=== PATIENT | female | born 1990 | race Caucasian/White ===

== ENCOUNTER 2024-08-26 15:38 | Observation (INO) | payer BC, SELFPAY ==
[2024-08-26] VITALS (9 sets, daily range): BP systolic 127–144; BP diastolic 63–80; PULSE 79–93; RESP 11–18; TEMP 36.2–36.6; O2SAT 95–100; BMI 31.9
--- NOTE | 2024-08-26 | PATH_ITS ---
[facility] Accession Number: [id number] No. of containers..02 Tissue . 01 Material submitted: . PART A: fallopian tube - LEFT FALLOPIAN TUBE AND OVARY PART B: endometrium - ENDOMETRIAL CURETTINGS . 01 Diagnosis: A. LEFT FALLOPIAN TUBE AND OVARY, LEFT SALPINGO-OOPHORECTOMY (WEIGHT 12 GRAMS) AND B. ENDOMETRIAL CURETTINGS: . Negative for ectopic gestation in part A or part B. Histologic changes in part A (possible luteoma of ) and part B (decidua and Chambers-Tania glandular reaction) suggest a possible extrauterine . Please correlate with clinical and imaging findings. [facility] 08/30/2024 1651 Local . 01 Comment: This case was also reviewed by Dr. Kiesha Mabry (Julie), who agrees with the interpretation. . Dr. Danielle Ann made multiple unsuccessful attempts to reach Dr. Misa Gold's care team on 08-30-24 between 4:30 p.m. and 4:45 p.m. Office phone number left with voicemail message. . 01 Electronically signed: . Danielle Ann MD, Pathologist NPI- [id number] . 01 Gross description: . A. Received in formalin with two identifiers and left ovary and left fallopian tube, is an intact fallopian tube (4.9 x 0.8 cm) attached to a 12 gram, 5.2 x 2.5 x 2.0 cm disrupted ovary. A portion of the ovary is ruptured revealing yellow-benitez, slightly spongy tissue. The external surface is inked blue and sectioning reveals two yellow disrupted cystic structures containing a small amount of coagulated hemorrhagic material. A second thin smooth-walled cyst containing benitez serous fluid measures 0.6 cm in greatest dimension with no excrescences identified. The remaining parenchyma is physiologic and unremarkable. . The tube has violaceous, smooth serosa with cystic structures up to 0.2 cm in greatest dimension filled with cloudy serous fluid. The lumen is stellate and unremarkable with no dilation or hemorrhagic material identified. Traffic Or System Dispatcher sections are submitted as follows: A1: Fallopian tube. A2-A5: Ovary. B. Received in formalin with two identifiers and endometrial curettings, are multiple benitez to red-brown soft tissue fragments admixed with hemorrhagic material received on multiple fragments of friable Telfa paper aggregating to 3.9 x 2.7 x 1.2 cm. Filtered and submitted entirely in B2-B2. ([id number]) /MRV 08/29/2024 1250 Local . 01 Pathologist provided ICD-10: N83.12 . 01 CPT . 055879, [id number] Specimen Comment: A courtesy copy of this report has been sent to [facility] Pathology Performed at: [address] [address], [place], [place] [id number] MD Prashant Hernández MD Phone: [phone]
--- NOTE | 2024-08-26 16:00 | ED_ITS ---
HPI - General Chief complaint: OB/Uterine Contractions Stated complaint: Ectopic and bleeding History of Present Illness HPI Narrative: 34-year-old female who comes from [facility] who is a with a concern of a left-sided ectopic . Sign-out was given to me by Dr. posey. Her previous was premature. Her most recent ultrasound by maternal medicine specialist showed an empty uterus so there was concern for potential ectopic . Yesterday she had some cramping in the lower abdominal area more on the left side and noticed some mucus darker secretion. Today she has been having some spotting off and on and more increase in lower left-sided abdominal pain. Related Data Previous Rx's ?Medication ?Instructions ?Recorded ibuprofen 800 mg tablet 800 mg PO Q8H PRN pain #14 t abs 08/26/24 oxycodone 5 mg tablet 5 mg PO Q8H PRN pain #7 tabs 08/26/24 Allergies Allergy/AdvReac Type Severity Reaction Status Date / Time nifedipine Allergy Unknown Verified 08/26/24 17:27 Review of Systems Review of Systems ROS Unobtainable: All systems reviewed & are unremarkable except as noted in HPI and below Exam Narrative Exam Narrative: General: Patient appears to be in no acute distress, acting appropriately Head: normocephalic, atraumatic, HEENT: Pupils equal round reactive, eyes tracking well, neck supple, no JVD Heart: regular rate and rhythm, no murmurs, rubs, or gallops heard Lungs: clear to auscultation, no adventitious sounds Abdomen: soft , mildly tender to palpation in left lower adomen , nondistended, positive bowel sounds Neurological: no focal neurological signs, moving all extremities well, alert and oriented x3, Psych: good judgment ,good insight, mood is normal. Initial Vital Signs Initial Vital Signs: Vital Signs Pulse Rate 85 08/26/24 15:47 Blood Pressure 129/75 08/26/24 15:47 Pulse Oximetry 95 08/26/24 15:47 Course Course Course Narrative: OBGYN physician Dr. Santizo is aware of patient and will take the patient into the OR to assist with the ectopic . Orders Ordered: ED Orders 08/26/24 16:12 Type and Screen Stat Albuterol (Albuterol 2.5 Mg/3 Ml Neb (Adult)) 2.5 mg INH NOW PRN PRN Reason: Coughing, Wheezing, Dyspnea Hydromorphone HCl (Hydromorphone 1 Mg Inj) 0 mg IV Q5MIN PRN PRN Reason: Pain, Moderate (4-6) Hydroxyzine HCl (Hydroxyzine Hcl 25 Mg Tablet) 25 mg PO NOW PRN PRN Reason: Pain, Mild (1-3) Lactated Ringer's (Lactated Ringers) 1,000 mls @ 21 mls/hr IV CONT VERO Last Admin: 08/26/24 18:49 Dose: 21 mls/hr Documented By: Infusion: 08/26/24 18:49 Dose: Infused Documented By: Admin: 08/26/24 17:26 Dose: 21 mls/hr Documented By: Admin: 08/26/24 17:07 Dose: Not Given Documented By: CHEPE Metoclopramide HCl (Metoclopramide 10 Mg/2 Ml Inj) 10 mg IV NOW PRN PRN Reason: Nausea And Vomiting Ondansetron HCl (Ondansetron 4 Mg/2 Ml Inj) 4 mg IV NOW PRN PRN Reason: Nausea And Vomiting Oxycodone HCl (Oxycodone Ir 5 Mg Tablet) 5 mg PO PACUNOW PRN PRN Reason: Mild or moderate pain Discontinued Medications Bupivacaine HCl/Epinephrine Bitart (Bupivacaine 0.5% W/ Epi (Pf) 30 Ml Vial) 30 ml INJ NOW ONE Stop: 08/26/24 18:25 Last Admin: 08/26/24 18:24 Dose: 30 ml Documented By: GENOVEVA Acetaminophen (Ofirmev) 1,000 mg in 100 mls @ 400 mls/hr IV NOW ONE Stop: 08/26/24 17:21 Last Admin: 08/26/24 17:26 Dose: 400 mls/hr Documented By: EVITA Ondansetron HCl (Ondansetron 4 Mg Odt Prepack) 1 bottle MISC DIRECTED ONE Stop: 08/26/24 17:29 Oxycodone/Acetaminophen (Oxycodone/Apap 5/325 Prepack) 1 bottle MISC DIRECTED ONE Stop: 08/26/24 17:29 Consultations Consultation #1: Dr santizo consulted and aware of patient and admitted to surgery. Thank you Dr. Santizo. Vital Signs Vital signs: Vital Signs - 8 hr 08/26/24 15:47 08/26/24 16:00 08/26/24 16:00 Temperature Pulse Rate 85 85 Respiratory Rate Blood Pressure 129/75 127/77 Pulse Oximetry 95 97 Oxygen Delivery Method 08/26/24 16:02 08/26/24 16:30 Temperature 97.8 F Pulse Rate 82 84 Respiratory Rate 18 Blood Pressure 127/77 130/80 Pulse Oximetry 97 97 Oxygen Delivery Method Room Air MDM - OB/Uterine Contractions Differential Diagnosis Differential diagnosis: Likely pre-eclampsia and other (ectopic , uti ) Lab Data Labs: Lab Results 08/26/24 Range/Units 16:12 Blood Type O Negative Antibody Screen Negative Point of Care Testing Test Results Positive MDM Narrative Medical decision making narrative: The patient admitted to obgyn surgery and will follow up from there. Discharge Plan Departure Patient Disposition: Admitted to Surgery Clinical Impression: Ectopic Qualifiers: Location of ectopic : other location Intrauterine status: unspecified Qualified Code(s): O00.80 - Other ectopic without intrauterine Admit Date/Time: 08/26/24 16:41 Admit Provider: Misa Santizo
--- NOTE | 2024-08-26 16:29 | PM.GYNHP.1 ---
History of Present Illness History of Present Illness Reason for admission: vaginal bleeding and ectopic Narrative: Brianda Ocampo is a 34 year old female at 8wga by stated LMP who presents as transfer for [facility] for further evaluation and management of ectopic without hemodynamic instability. Patient states she had first new OB appointment with [facility] [place] 08/24. bHCG at that time was reported 36,697 however no evidence of intrauterine . Patient was counseled on suspected ectopic but was discharged to home with strict instructions to present to nearest ED in mormonism of vaginal bleeding or abdominal pain. Patient states that she noticed some pink-tinged mucoid discharge Tuesday evening (08/25) and then awoke this AM with new LLQ pain as well as light gaurang vaginal bleeding. She presented to [facility] ED where repeat bHCG now >50k, pelvic US without evidence of IUP however evidence of multi-cystic TRENT with areas of soft tissue nodularity and some hypervascularity however no distinct YS/GS/FP. [facility] contacted on-call [facility] due for transfer due to their OR being currently non-operational. Request for patient to be transferred to [facility] to facilitate further evaluation with anticipated need for surgery. On my interview patient is resting comfortably in bed, at bedside. She states her current pain is 4/10 but does experience sharp twinges with any kind of movement. She verbalizes understanding of need for surgery due to clinical presentation, as well as that medical management with methotrexate is not recommended due to the high bHCG level. PMHx significant for h/o prior PTB at 30wga via 1LTCS (7yo daughter), denies h/o prior abdominal surgery, never smoker, denies h/o GC/CT/PID or h/o prior ectopic . Known CHTN managed at home with low-dose PO hctz. No allergies. Last PO 0930 (applesauce). Per OSH ED US: FINDINGS: The uterus demonstrates mildly thickened endometrium with multiple small cystic spaces. There is no discrete gestational sac or pole. Maternal organs: The right ovary in not well evaluated. The left ovary demonstrates multiple cystic areas, one of which has the appearance of a corpus luteal cyst. There is a thick-walled left ovarian cyst which measures 1.7x1.8x2.0cm and which shows a soft tissue nodular component but no vascularity. There is a rounded area of hypervascular soft tissue also within the left ovary which measures 1.5x1.8x1.5cm Other: there is no free fluid within the pelvis Impression: constellation of findings concerning for left-sided ectopic OSH labs: h/h 12.2/35.2 Cr 0.7 bHCG 54,190 blood type: O negative [facility] Medical History (Updated 08/26/24 @ 16:36 by Misa Gold MD) Ectopic of left ovary Social History Smoking Status: Never smoker Meds Home Medications and Allergies Allergies Allergy/AdvReac Type Severity Reaction Status Date / Time nifedipine Allergy Unknown Verified 08/26/24 16:03 Review of Systems Review of Systems ROS: Yes All systems reviewed with the patient and are negative except as otherwise documented Exam Vital Signs (past 8 hours): - 08/26/24 15:47 08/26/24 16:00 08/26/24 16:00 Temperature Pulse Rate 85 85 Respiratory Rate Blood Pressure 129/75 127/77 Pulse Oximetry 95 97 Oxygen Delivery Method 08/26/24 16:02 Temperature 97.8 F Pulse Rate 82 Respiratory Rate 18 Blood Pressure 127/77 Pulse Oximetry 97 Oxygen Delivery Method Room Air Oxygen Delivery Method Room Air Const General: cooperative, comfortable and well developed Nutritional Appearance: overweight Orientation: alert, awake and oriented x3 Limitations: mental status not altered Resp Effort & Inspection: normal respiratory effort and able to speak in complete sentences Cardio Pulses: normal peripheral pulses GI Palpation: soft and tender (LLQ, equivocal rebound, +voluntary guarding ) Other: deferred Skin General: no rashes or lesions noted Neuro General: patient alert, patient awake and patient oriented x3 Extrem General: normal to inspection Psych Mental Status: mental status grossly normal Judgment: judgment good Assessment & Plan Assessment and plan (1) Ectopic of left ovary: Status: Acute Assessment & Plan narrative: 34yo at 8wga by stated LMP presents to ED, transfer from [facility] secondary to facility limitations for further evaluation and surgical management of L ectopic without current hemodynamic instability Ectopic presumed TRENT origin per review of US, clinical presentation Patient counseled on and in agreement with recommendation to proceed to OR for definitive surgical evaluation via diagnostic laparoscopy. We discussed that final laterality of procedure will be determined by intraoperative findings, however per review of OSH US report it does appear that the is likely within the L ovary. We discussed increased likelihood of need for ipsilateral salpingectomy or even ipsilateral salpingooophorectomy pending findings, as well as recommendation for D&C to decrease length and duration of vaginal bleeding. Risks, benefits and alternatives to procedure were reviewed. Patient verbalized understanding and desires to proceed, operative informed consent completed OR team activated on arrival to ED NPO since 929 IVF at maintenance, T&S ordered and pending, no indication for rhogam secondary to early gestational age anticipate dc to home pending procedure and clinical course dispo: admit to CONSULTING SOFTWARE ENGINEER, anticipate dc to home following procedure Time-Based Coding :: [TOTAL MINUTES] spent with patient and on the chart (including review of chart, obtaining history, exam, reviewing outside data, placing orders, documenting exam and treatment plan, and counseling patient) on [DATE].
--- NOTE | 2024-08-26 17:08 | PM.PREOP ---
Pre-operative Note Interval Note History & Physical reviewed/Exam performed by Physician: Yes Changes to H&P: No ASA Class (for procedural sedation): II
[2024-08-26] MEDS: LACTATED RINGERS 1,000 ML 21 ML IV ×2 (17:26→18:49)
[2024-08-26] MEDS: ACETAMINOPHEN IV 1,000 MG/100 ML VIAL 400 MG IV (17:26)
--- NOTE | 2024-08-26 18:11 | SUR.OPER ---
Lithotomy on padded OR bed. [place] Pad Positioner under torso. Head on pillow, arms padded and tucked at sides. Legs secured in padded yellow fins stirrups. Dr. Gold in room at time of positioning and approved final position
[2024-08-26] MEDS: BUPIVACAINE 0.5% W/ EPI (PF) 30 ML VIAL INJ (18:24)
--- NOTE | 2024-08-26 19:11 | P.OP_ITS ---
Operative Date/Time/Diagnoses Date of procedure: 08/26/24 Time of procedure: 19:11 Pre-op diagnosis: ectopic Post-op diagnosis: same Procedure & Clinicians Procedure: diagnostic laparoscopy, left salpingo-oophorectomy, dilation and curettage Same procedure(s) as scheduled: Yes Indications: of unknown location Surgeon: Misa Gold Click Yes if Unassisted: Yes Anesthesia Type: General Operative Notes Findings: Enlarged multicystic ovary consistent with ectopic , clubbed appearing L fallopian tube; normal appearing uterus, R salpinx, R ovary and appendix Closure Type: primary Specimen(s): other (1) L ovary and fallopian tube; 2) endometrial currettings ) Applied: none Estimated Blood Loss (mL): 50 Blood products transfused: none Procedure in detail: The patient was taken to the operating room, placed on the operating table in the supine position and intubated with ETT.? The patient was then placed in the lithotomy position with her legs in Dylan stirrups.? The patient was then examined under anesthesia with the above findings, then prepped and draped in a sterile fashion.? A stafford catheter was placed.? Time out was performed. A 5mm incision was made infraumbilically and abdominal entry was achieved under direct visualization using the 5mm VisaPort trocar.? Abdomen was insufflated to 15mmHg.? Two left lateral 5-mm ports were placed in a similar manner under dir ect visualization.? The uterus was elevated and intraoperative findings were noted as above. The L ovary was grasped with atraumatic grasper and using endoshears the L ovarian cyst was opened and then further hydrodissected using suction irrigation. First cyst explored with noted serous contents consistent with corpus luteum. An adjacent cyst was then also sharply entered with return of blood and contents more consistent with ectopic . Hydrodissection was again performed, however it appeared the was deep within the ovary itself and decision made at that point to proceed with unilateral L salpingo- oophorectomy. The infundibulopelvic ligament was identified and elevated, ligated and transected using the PowerSeal. The fallopian tube was dissected away from the mesosalpinx using the Powerseal followed by ligation of utero- ovarian artery. The fallopian tube was amputated at the level of the cornua and the specimen was placed in the anterior cul de sac. The wound beds were suction irrigated and noted to be hemostatic. The 5mm infraumbilical port was removed and skin incision extended sharply using the knife. A 12mm port was then placed via the enlarged incision under direct visualization. The endocatch bag was introduced via the 12mm port and the specimen was placed in its entirety into the bag under direct visualization. The bag was brought to the level of the incision. Insufflation was released and the bag and its contents were removed without difficulty. The fascia of the incision was identified and grasped using kochers and closed using 0-0 vicryl on a UR6 needle. At this time a needle stick was identified without exposure of patient to contaminated instrument. Instrument and needle were passed off the field and gloves were changed. The skin of all incisions was closed using 4-0 monocryl followed by application of dermabond. Attention was then turned to the vaginal portion of the case. A sterile speculum was placed in the vagina and the cervix was visualized. Anterior cervix grasped with single tooth tenaculum and under gentle traction cervix dilated to 17f using Swain dilators. Gentle sharp curettage performed until a gritty texture was noted throughout, specimen passed off the field for permanent study. Tenaculum removed and hemostasis noted at insertion sites. Speculum removed. Patient was awakened from anesthesia, extubated and taken to recovery in stable condition. All counts correct x2, no complication. Patient family informed of provider needle stick with need for patient and provider post-exposure labs per protocol which will be completed prior to patient discharge. Complications: none Post-operative Condition: stable Disposition: PACU Plan for aftercare: anticipate dc to home pending clinical recovery
[2024-08-26] MEDS: ONDANSETRON 4 MG/2 ML INJ IV (19:34)
[2024-08-26] MEDS: HYDROMORPHONE 1 MG INJ IV ×2 (19:34→19:45)
[2024-08-26] MEDS: OXYCODONE IR 5 MG TABLET PO (19:35)
[2024-08-26 19:43] LABS: Alanine Aminotransferase 58 IU/L (<35)
[2024-08-26] MEDS: ONDANSETRON 4 MG ODT PREPACK 1 BOTTLE MISC (20:35)
[2024-08-26] MEDS: OXYCODONE/APAP 5/325 PREPACK 1 BOTTLE MISC (20:35)
[2024-08-26 20:45] LABS: Hepatitis B Surface Antigen NEGATIVE s/c (NEGATIVE)
[2024-08-26 20:52] LABS: HIV 1 & 2 Ab/Ag 4th Gen Combo NEGATIVE (NEGATIVE); Hep C Virus Ab w/Reflex Quant NEGATIVE s/c (NEGATIVE)
[2024-08-29 05:10] LABS: Hepatitis B Surf Ab Qualitativ Non Reactive (.)
== END 2024-08-26 20:36 | disposition home or self-care (01) ==
LOC: ED 15:53 → AC 16:42
PROVIDERS: Admitting Provider Obstetrics & Gynecology; Emergency Provider Family Medicine; Referring Provider Family Medicine; Visit Provider Obstetrics & Gynecology
PROC: (CPT 49320; principal; 2024-08-26 17:30)
PROC: (CPT 58120; 2024-08-26 17:30)
DX: O00.202 Left ovarian pregnancy without intrauterine pregnancy (principal)
CPT/HCPCS: 58661; 58558; 36415; 82962; 86850; 86900; 86901; 99283; G0378; J0131; J0330; J1100; J1171; J1885; J2250; J2405; J2704; J3010; J3490

== ENCOUNTER 2024-08-30 19:37 | Emergency (ER) | payer BC, SELFPAY ==
[2024-08-30 19:44] VITALS: BP 148/73; PULSE 82; RESP 16; TEMP 36.8; O2SAT 99; BMI 32.7
[2024-08-30 21:40] LABS: Add Manual Diff / Slide Review NO; Hematocrit 35.8 % (36-46); Hemoglobin 12.8 g/dL (12.0-16.0); Lymphocytes Absolute Auto 2900 /uL (1100-4500); Mean Corpuscular HGB Conc 35.7 % (30-36); Mean Corpuscular Hemoglobin 30.7 PG (26-34); Mean Corpuscular Volume 86.0 fL (80-100); Platelet Count 308 X10^3/uL (150-400)
[2024-08-30 22:05] LABS: Alanine Aminotransferase 42 IU/L (<35); Albumin 4.7 g/dL (3.5-5.0); Albumin Globulin Ratio 1.3 (1.0-2.8); Alkaline Phosphatase 131 U/L (38-126); Blood Urea Nitrogen 15 mg/dL (7-17); Calcium 9.9 mg/dL (8.4-10.2); Carbon Dioxide 22 mmol/L (22-32); Chloride 105 mmol/L (98-107); Estimated Glomerular Filt Rate > 60 mL/min (>60); Globulin 3.7 g/dL (1.7-4.1); Glucose 94 mg/dL (70-99); HEMOLYSIS 22 (0-50); Lipase 80 U/L (23-300); Potassium 4.0 mmol/L (3.4-5.1); Sodium 138 mmol/L (137-145); Total Protein 8.4 g/dL (6.3-8.2)
[2024-08-31] VITALS (10 sets, daily range): BP systolic 116–144; BP diastolic 60–86; PULSE 73–84; O2SAT 98–100
--- NOTE | 2024-08-31 01:12 | ED.ABDPAIN ---
HPI - Abdominal Pain General Chief Complaint: Abdominal Pain Stated Complaint: infection on incisions Time Seen by Provider: 08/30/24 20:01 Source: patient Mode of arrival: Ambulatory History of Present Illness HPI narrative: 34-year-old female status post surgery for ectopic , believes that she also had D and C, by Dr. Bishop here at [facility] on Tuesday 5 days ago, having increasing redness slight drainage to surgical wound sites. She feels nauseated, no emesis. No loose stools, no black or red stools. She would not currently on any antibiotics. She has been taking her postoperative oxycodone and ibuprofen with reasonable pain control. Concerned about infection. No measured fever, she is not feel feverish, no shaking chills. No dysuria or frequency of urination. Minimal vaginal bleeding. Related Data Previous Rx's ?Medication ?Instructions ?Recorded ibuprofen 800 mg tablet 800 mg PO Q8H PRN pain #14 tabs 08/26/24 oxycodone 5 mg tablet 5 mg PO Q8H PRN pain #7 tabs 08/26/24 cephalexin 500 mg capsule 500 mg PO QID 7 days #28 caps 08/31/24 sulfamethoxazole 800 1 tab PO BID #14 tabs 08/31/24 mg-trimethoprim 160 mg tablet (Bactrim DS) Allergies Allergy/AdvReac Type Severity Reaction Status Date / Time nifedipine Allergy Unknown Verified 08/26/24 17:27 Patient History Medical History (Updated 08/31/24 @ 04:20 by Wilmer Flood MD) Ectopic of left ovary Social History household members: spouse Smoking Status: Never smoker Smoking Status: Never smoker Exam Narrative Exam Narrative: GENERAL: Well-developed patient, in mild distress. HEAD: Atraumatic. Normocephalic. EYES: Pupils equal round and reactive. Extraocular motions intact. No scleral icterus. No injection or drainage. ENT: Nose without bleeding, purulent drainage. Throat without erythema, tonsillar hypertrophy or exudate. Airway patent. NECK: Trachea midline. Non tender CARDIOVASCULAR: Regular rate and rhythm without murmurs, gallops, or rubs. RESPIRATORY: Clear to auscultation. Breath sounds equal bilaterally. No wheezes, rales, or rhonchi. GASTROINTESTINAL: Abdomen with laparoscopic port sites left lower quadrant. Left inferior site without fluctuance, has 8 cm surrounding erythema. Left mid quadrant lateral site without fluctuance, has 6 cm surrounding erythema. Periumbilical site has 6 x 8 cm diameter erythema midline to the right paramedian without fluctuance. Bowel tones unremarkable. Nondistended. EXTREMITIES: No edema or joint tenderness. BACK: Nontender without deformity or crepitance. No flank tenderness. NEURO: AOx3. Motor functions grossly nonfocal. SKIN: No rash or erythema of visible areas Initial Vital Signs Initial Vital Signs: Vital Signs Temperature 98.3 F 08/30/24 19:44 Pulse Rate 82 08/30/24 19:44 Respiratory Rate 16 08/30/24 19:44 Blood Pressure 148/73 H 08/30/24 19:44 Pulse Oximetry 99 08/30/24 19:44 Oxygen Delivery Method Room Air 08/30/24 19:44 Course Orders Ordered: Discontinued Medications Vancomycin HCl 2,000 mg/ (Sodium Chloride) 500 mls @ 250 mls/hr IV STAT ONE Stop: 08/31/24 01:27 Last Admin: 08/31/24 04:17 Dose: Not Given Documented By: LILIANA Ceftriaxone Sodium 1,000 mg/ (Sodium Chloride) 100 mls @ 200 mls/hr IV NOW ONE Stop: 08/31/24 01:27 Last Infusion: 08/31/24 03:47 Dose: Infused Documented By: Admin: 08/31/24 02:35 Dose: 200 mls/hr Documented By: NEIL Ondansetron HCl (Ondansetron 4 Mg/2 Ml Inj) 4 mg IV NOW PRN PRN Reason: Nausea And Vomiting Last Admin: 08/31/24 02:39 Dose: 4 mg Documented By: NEIL Ondansetron HCl (Ondansetron 4 Mg Odt) 4 mg PO NOW PRN PRN Reason: Nausea And Vomiting Trimethoprim/Sulfamethoxazole (Trimeth/Sulfa 160/800 (Ds) Tablet) 1 tab PO NOW ONE Stop: 08/31/24 04:11 Last Admin: 08/31/24 04:17 Dose: 1 tab Documented By: LILIANA Vital Signs Vital signs: Vital Signs - 8 hr 08/31/24 00:11 08/31/24 00:11 08/31/24 00:30 Pulse Rate 84 73 Blood Pressure 144/85 H Pulse Oximetry 99 98 08/31/24 00:30 08/31/24 01:00 08/31/24 01:00 Pulse Rate 81 Blood Pressure 130/76 129/70 Pulse Oximetry 98 08/31/24 01:30 08/31/24 01:30 08/31/24 01:52 Pulse Rate 79 79 Blood Pressure 128/86 Pulse Oximetry 98 100 08/31/24 01:52 08/31/24 02:00 08/31/24 02:00 Pulse Rate 78 Blood Pressure 122/60 118/61 Pulse Oximetry 98 08/31/24 02:30 08/31/24 02:30 Pulse Rate 78 Blood Pressure 133/81 Pulse Oximetry 98 MDM - Abdominal Pain Lab Data Attestation: I reviewed the patient's lab results. Lab results narrative: White blood cell count 10,400, hemoglobin 12.8, platelets adequate. Glucose 94. Normal renal function, serum CO2, electrolytes. Slight elevation alkaline phosphatase and ALT, AST and T bili normal. Lipase normal. Serum hCG 3800 noted. 08/30/24 21:33 08/30/24 21:33 Labs: Lab Results 08/30/24 Range/Units 21:33 WBC 10.4 (4.5-11.0) X10^3/uL RBC 4.16 (4.0-5.2) X10^6/uL Hgb 12.8 (12.0-16.0) g/dL Hct 35.8 L (36-46) % MCV 86.0 (80-100) fL MCH 30.7 (26-34) PG MCHC 35.7 (30-36) % RDW 13.9 (11.6-14.8) % Plt Count 308 (150-400) X10^3/uL Neut % (Auto) 61.6 (50-75) % Lymph % (Auto) 28.2 (25-40) % [place] % (Auto) 7.7 (3-14) % Eos % (Auto) 2.1 (2-4) % Baso % (Auto) 0.4 (0-2) % Neut # (Auto) 6400 (2329-3520) /uL Lymph # (Auto) 2900 (8285-1234) /uL [place] # (Auto) 800 (0-900) /uL Eos # (Auto) 200 (0-450) /uL Baso # (Auto) 0 (0-100) /uL Sodium 138 (137-145) mmol/L Potassium 4.0 (3.4-5.1) mmol/L Chloride 105 (98-107) mmol/L Carbon Dioxide 22 (22-32) mmol/L BUN 15 (7-17) mg/dL Creatinine 0.71 (0.52-1.04) mg/dL Estimated GFR > 60 (>60) mL/min BUN/Creatinine Ratio 21.1 (6-22) Glucose 94 (70-99) mg/dL Calcium 9.9 (8.4-10.2) mg/dL Total Bilirubin 0.5 (0.2-1.3) mg/dL AST 35 (14-36) IU/L ALT 42 H (<35) IU/L Alkaline Phosphatase 131 H (38-126) U/L Total Protein 8.4 H (6.3-8.2) g/dL Albumin 4.7 (3.5-5.0) g/dL Globulin 3.7 (1.7-4.1) g/dL Albumin/Globulin Ratio 1.3 (1.0-2.8) Lipase 80 (23-300) U/L HCG, Quant 46517 mIU/mL Imaging Data CT scan - abdomen/pelvis: Radiologist's Impression: Close Abdomen/Pelvis CT (Signed) Hal Walters - 08/31/24 [place] [address] CT Scan Report Signed Patient: Brianda Ocampo MR#: [id number] : 1990 Acct:[id number] Age/Sex: 34 / F Date of Service: 08/31/24 Loc: ED Accession Number: [id number] Procedure: CT abdomen pelvis w con Ordering Provider: Wilmer Flood MD PROCEDURE: CT ABDOMEN PELVIS W CON INDICATIONS: abd pain, redness, post explap for ectopic TECHNIQUE: After the administration of intravenous contrast, axial sections acquired from the lung bases to the pubic symphysis. Coronal and sagittal reformats were performed. For radiation dose reduction, the following was used: automated exposure control, adjustment of mA and/or kV according to patient size. COMPARISON: None. FINDINGS: Image quality: Diagnostic. Lower Chest: No significant findings. ABDOMEN: Liver: No solid mass. Gallbladder: No radiopaque gallstones or wall thickening. Biliary ducts: No biliary dilation. Pancreas: No ductal dilation. Spleen: Size is within normal limits. Adrenal Glands: No adrenal nodules. Kidneys and Ureters: No hydronephrosis. No solid mass. No complex renal cystic lesion which requires follow up. Nonobstructing 7 mm right-sided nephrolithiasis. Stomach and Bowel: Normal colonic caliber, without significant wall thickening. Normal appendix. Mild diverticular disease. Peritoneum: No abnormal intraperitoneal fluid. No free air. Ventral Wall: Small umbilical hernia containing fat. There is mild soft tissue edema and perinephric fat stranding about the umbilicus (series 2, image 79) . Mild skin thickening of the left lower quadrant, with associated subdermal fat stranding. Abdominal Nodes: No retroperitoneal or mesenteric adenopathy by size criteria. Vessels: Aorta and inferior vena cava are normal in size. PELVIS: Pelvic Organs: Prominent endometrial vessels, with thickening of the endometrium at 12 mm. Bladder: No bladder wall thickening, accounting for underdistention. Pelvic Nodes: No enlarged lymph nodes. Miscellaneous: No inguinal hernias are seen. Bones: No aggressive osseous abnormality. Prominent disc herniation at L5-S1. Moderate disc height loss at L4-5 with opposing endplate sclerosis. IMPRESSION: Soft tissue edema and fat stranding about the umbilicus and left lower quadrant, likely inflammatory changes related to recent laparoscopic port placement. No abscess. Prominent endometrial vessels. Findings could represent an acquired arteriovenous malformation in the presumed setting of recent D&C. This could be confirmed with ultrasound if necessary. Dictated by: Hal Walters M.D. on 08/31/2024 at 2:10 Approved by: Hal Walters M.D. on 08/31/2024 at 2:16 [facility] Narrative Medical decision making narrative: 34-year-old with history of ectopic laparoscopic surgery 5 days ago, with increasing redness to ventral skin area wounds with some weeping. Afebrile, sirs screen negative. Lab data: White blood cell count 10,400, hemoglobin 12.8, platelets adequate. Glucose 94. Normal renal function, serum CO2, electrolytes. Slight elevation alkaline phosphatase and ALT, AST and T bili normal. Lipase normal. Serum hCG [address] abdomen and pelvis. Impressions: ?Soft tissue edema and fat stranding about the umbilicus and left lower quadrant, likely inflammatory changes related to recent laparoscopic port placement. No abscess. Prominent endometrial vessels. Findings could represent an acquired arteriovenous malformation in the presumed setting of recent D&C. This could be confirmed with ultrasound if necessary. See radiology report. 0400, discussed with Dr De La Fuente, agrees with Keflex/Bactrim combination antibiotics for outpatient treatment, with close follow up with her surgeon in clinic early mid next week. She would not feel that pelvic ultrasound was necessary at this time. Ceftriaxone given prior, hold vancomycin (not yet given) at this time. We will give oral Bactrim dose instead. We will send prescriptions to her pharmacy for courses of Keflex and Bactrim antibiotics. Discharged home. Follow up with Gynecology. Return precautions discussed. Discharge Plan Departure Patient Disposition: Home Clinical Impression: Abdominal wall cellulitis Instructions: DI for Cellulitis -- Adult Activity Restrictions/Additional Instructions: Recent laparoscopic surgery for ectopic 5-6 days ago, with increasing redness to laparoscopic surgical sites and around the umbilical region. CT scan showed no drainable fluid collection. Possible cellulitis. IV ceftriaxone given, with oral Bactrim. Case was discussed with on-call lidder Dr. Cevallos, we advised further antibiotics as an outpatient ventral wall cellulitis, with Keflex and Bactrim. Antibiotics prescription sent to pharmacy. Call your surgeon Dr. Gurrola later today, to arrange close follow up appointment early mid next week. Return earlier to this/nearest emergency department for any change worsening symptoms or any concerns prior. Prescriptions: New cephalexin 500 mg capsule 500 mg PO QID 7 Days Qty: 28 0RF sulfamethoxazole-trimethoprim [Bactrim DS] 800-160 mg tablet 1 tab PO BID Qty: 14 0RF No Action oxycodone 5 mg tablet 5 mg PO Q8H PRN (Reason: pain) Qty: 7 0RF ibuprofen 800 mg tablet 800 mg PO Q8H PRN (Reason: pain) Qty: 14 0RF Referrals: Lucinda Franks MD [Physician, Family Practice] Stand Alone Forms: Patient Portal/API
--- NOTE | 2024-08-31 01:22 | DI.CT.S_ITS ---
PROCEDURE: CT ABDOMEN PELVIS W CON INDICATIONS: abd pain, redness, post explap for ectopic TECHNIQUE: After the administration of intravenous contrast, axial sections acquired from the lung bases to the pubic symphysis. Coronal and sagittal reformats were performed. For radiation dose reduction, the following was used: automated exposure control, adjustment of mA and/or kV according to patient size. COMPARISON: None. FINDINGS: Image quality: Diagnostic. Lower Chest: No significant findings. ABDOMEN: Liver: No solid mass. Gallbladder: No radiopaque gallstones or wall thickening. Biliary ducts: No biliary dilation. Pancreas: No ductal dilation. Spleen: Size is within normal limits. Adrenal Glands: No adrenal nodules. Kidneys and Ureters: No hydronephrosis. No solid mass. No complex renal cystic lesion which requires follow up. Nonobstructing 7 mm right-sided nephrolithiasis. Stomach and Bowel: Normal colonic caliber, without significant wall thickening. Normal appendix. Mild diverticular disease. Peritoneum: No abnormal intraperitoneal fluid. No free air. Ventral Wall: Small umbilical hernia containing fat. There is mild soft tissue edema and perinephric fat stranding about the umbilicus (series 2, image 79) . Mild skin thickening of the left lower quadrant, with associated subdermal fat stranding. Abdominal Nodes: No retroperitoneal or mesenteric adenopathy by size criteria. Vessels: Aorta and inferior vena cava are normal in size. PELVIS: Pelvic Organs: Prominent endometrial vessels, with thickening of the endometrium at 12 mm. Bladder: No bladder wall thickening, accounting for underdistention. Pelvic Nodes: No enlarged lymph nodes. Miscellaneous: No inguinal hernias are seen. Bones: No aggressive osseous abnormality. Prominent disc herniation at L5-S1. Moderate disc height loss at L4-5 with opposing endplate sclerosis. IMPRESSION: Soft tissue edema and fat stranding about the umbilicus and left lower quadrant, likely inflammatory changes related to recent laparoscopic port placement. No abscess. Prominent endometrial vessels. Findings could represent an acquired arteriovenous malformation in the presumed setting of recent D&C. This could be confirmed with ultrasound if necessary. Dictated by: Hal Walters M.D. on 08/31/2024 at 2:10 Approved by: Hal Walters M.D. on 08/31/2024 at 2:16
[2024-08-31] MEDS: ONDANSETRON 4 MG/2 ML INJ IV (02:39)
[2024-08-31] MEDS: TRIMETH/SULFA 160/800 (DS) TABLET 1 TAB PO (04:17)
[2024-08-31 13:11] LABS: HCG Quantitative /Beta subunit 38087 mIU/mL
== END 2024-08-31 04:34 | disposition home or self-care (01) ==
PROVIDERS: Obstetrics & Gynecology; Emergency Provider Emergency Medicine
DX: L03.311 Cellulitis of abdominal wall (principal)
CPT/HCPCS: 36415; 74177; 80053; 83690; 84702; 85025; 87040; 96365; 96375; 99284; J0696; J2405; Q9967

== ENCOUNTER → 2024-09-11 14:24 | Outpatient (CLI) | payer BC, SELFPAY ==
[2024-09-11 15:20] LABS: HCG Quantitative /Beta subunit 1534.1 mIU/mL
== END ==
PROVIDERS: Referring Provider Obstetrics & Gynecology; Visit Provider Obstetrics & Gynecology
DX: O36.80X0 Pregnancy with inconclusive fetal viability, not applicable or unspecified (principal)
CPT/HCPCS: 36415; 84702